=== PATIENT | male | born 1985 | race Caucasian/White ===

== ENCOUNTER 2017-07-02 11:49 | Emergency (ER) | payer OTHER ==
[~2017-07-02] VITALS: Ht 175.3 cm; Wt 77.1 kg
--- NOTE | 2017-07-02 12:42 | ED General ---
General Chief Complaint: Laceration Stated Complaint: FINGER LAC Nursing Triage Note: PT WAS WORKING AT [employer] AND CUT HIS RIGHT 2ND FINGER. Nursing Sepsis Screen: No Definite Risk Source of Information: Patient Exam Limitations: Language Barrier (language line used.) History of Present Illness Date Seen by Provider: Jul 02, 2017 Time Seen by Provider: 12:05 Initial Comments 31-year-old male patient presents to the emergency department via [facility] with complaints of cutting his right second finger with a hook while at work at [employer] Location Injury Occurred: work Timing/Duration: 1/2 Hour Severity: Mild Modifying Factors: worse with Other (pain worse with palpation) Allergies and Home Medications Allergies Coded Allergies: No Known Drug Allergies (Unverified , 07/02/17) Home Medications Cephalexin 500 Mg Capsule, 500 MG PO TID Prescribed by: MILLICENT LAZARO on 07/02/17 1323 Patient Home Medication List Home Medication List Reviewed: Yes Constitutional: no symptoms reported Musculoskeletal: see HPI, No joint pain, No joint swelling, other (Pain at the laceration site of the right second finger) Skin: see HPI, other (Laceration right second finger) Psychiatric/Neurological: Denies Numbness, Denies Paresthesia, Denies Tingling , Denies Weakness All Other Systems Reviewed Negative Unless Noted: Yes (Negative excepted noted.) Past Zncenuy-Vflsfc-Xpyrxg Hx Patient Social History Alcohol Use: Denies Use Recreational Drug Use: No Smoking Status: Unknown if Ever Smoked Recent Foreign Travel: No Contact w/Someone Who Travel: No Recent Infectious Disease Expo: No Immunizations Up To Date Tetanus Booster (TDap): Unknown Surgeries History of Surgeries: No Respiratory History of Respiratory Disorde: No Cardiovascular History of Cardiac Disorders: No Neurological History of Neurological Disord: No Genitourinary History of Genitourinary Disor: No Gastrointestinal History of Gastrointestinal Di: No Musculoskeletal History of Musculoskeletal Dis: No Endocrine History of Endocrine Disorders: No HEENT History of HEENT Disorders: No Cancer History of Cancer: No Psychosocial History of Psychiatric Problem: No Integumentary History of Skin or Integumenta: No Blood Transfusions History of Blood Disorders: No Reviewed Nursing Assessment Reviewed/Agree w Nursing PMH: Yes Family Medical History Significant Family History: No Pertinent Family Hx Physical Exam Vital Signs Vital Signs - First Documented 07/02/17 07/02/17 12:07 13:45 Temp 97.5 Pulse 70 Resp 16 B/P (MAP) 118/72 (87) Pulse Ox 98 O2 Delivery Room Air Capillary Refill : Less Than 3 Seconds General Appearance: No Apparent Distress, WD/WN Cardiovascular: Normal Peripheral Pulses Extremity: Normal Capillary Refill, Normal Range of Motion (Full extension noted of the right second finger), Other (1 cm laceration of the proximal right second posterior finger with mild soft tissue tenderness.) Neurologic/Psychiatric: Alert, Oriented x3, No Motor/Sensory Deficits, Normal Mood/Affect Skin: Normal Color, Warm/Dry, Other (1 cm laceration of the proximal right second posterior finger with mild soft tissue tenderness.) Laceration Repair : Wound Location: Other (rt 2nd finger) Wound Length (cm): 1 Wound's Depth, Shape: linear, sub Q Wound Explored: contaminated Irrigated w/ Saline (ccs): 100 Betadine Prep?: Yes (and scrubbed with chlorhexidine and sterile saline ) Anesthesia: 1% Lidocaine Volume Anesthetic (ccs): 2 Suture: Ethlion Suture Size: 4-0 Number of Sutures: 1 (horizontal mattress suture) Layer Closure?: 1 Sterile Dressing Applied?: Yes Progress blood loss minimal. patient tolerated the procedure well. Progress/Results/Core Measures Suspected Sepsis Recent Fever Within 48 Hours: No Infection Criteria Present: Suspected New Infection New/Unexplained Altered Menta: No Sepsis Screen: No Definite Risk Sepsis Diagnosis: SIRS Temperature:97.5 Pulse: 70 Respiratory Rate: 16 Blood Pressure 118 /72 Mean: 87 Results/Orders My Orders Orders - MILLICENT LAZARO PA Dipht,Pertuss(Acell),Tet Adult (Boostrix (07/02/17 12:43) Lidocaine 1% (Xylocaine 1%) (07/02/17 12:45) Finger(S) (07/02/17 13:14) Medications Given in ED Current Medications Medications Dose Ordered Sig/Alec Route Start Time Stop Time Status Last Admin Dose Admin Lidocaine HCl 50 ml ONCE ONCE IJ 07/02/17 12:45 07/02/17 12:46 DC 07/02/17 12:53 50 ML Vital Signs/I&O Vital Sign - Last 12Hours 07/02/17 07/02/17 07/02/17 07/02/17 12:07 12:53 12:55 13:45 Temp 97.5 97.5 97.5 97.5 Pulse 70 70 Resp 16 16 B/P (MAP) 118/72 (87) 118/70 (87) Pulse Ox 98 O2 Delivery Room Air Capillary Refill : Less Than 3 Seconds Blood Pressure Mean: 87 Diagnostic Imaging Diagonstic Imaging: Xray Plain Films/CT/US/NM/MRI: hand Comments FINDINGS: No fractures or dislocations with no radiopaque foreign bodies. Overlying gauze material does slightly limit evaluation of the soft tissues. IMPRESSION: 1. No acute abnormality appreciated. Dictated by: Dictated on workstation # [id number] Reviewed: Reviewed by Me (radiology report reviewed by me) Departure Impression Impression: Primary Impression: Laceration of finger of right hand Qualified Codes: S61.210A - Laceration without foreign body of right index finger without damage to nail, initial encounter Disposition: 01 HOME, SELF-CARE Condition: Improved Departure-Patient Inst. Decision time for Depature: 13:22 Referrals: NO,LOCAL PHYSICIAN (PCP/Family) Primary Care Physician Patient Instructions: Laceration Repair With Stitches (DC) Add. Discharge Instructions: All discharge instructions reviewed with patient and/or family. Voiced understanding. Medications as instructed. Tylenol extra strength over-the- counter as directed for pain. Ibuprofen 800 mg by mouth every 8 hours as needed for pain. Elevate the right hand on pillows. Ice pack as needed for pain. Tomorrow morning you may remove the bandage, shower with antibacterial soap and pat dry. Apply triple antibiotic ointment twice daily for 3 days and cover with a bandage. Return to the emergency department in 7 days for suture removal. Follow-up with occupational health. Return to the emergency department immediately for worsened pain, redness, fever, drainage, or any other concerns. Scripts Cephalexin (Cephalexin) 500 Mg Capsule 500 MG PO TID, #15 CAP 0 Refills Prov: MILLICENT LAZARO 07/02/17 MILLICENT LAZARO Jul 02, 2017 12:42
[2017-07-02] MEDS ORDERED: TETANUS,DIPTH,PERTUSS P/F (BOOSTRIX) 0.5 ML VIAL IM STA (12:43)
[2017-07-02] MEDS ORDERED: LIDOCAINE 1% INJ 50 ML (XYLOCAINE) VIAL IJ ONE (12:45)
[2017-07-02] MEDS ORDERED: CEPH500C PO (13:23)
[2017-07-02 13:45] VITALS: BP 118/70
--- NOTE | 2017-07-02 13:57 | Diagnostic Imaging Report ---
INDICATION: Second digit laceration. EXAMINATION: Three views of the second digit from 07/02/2017. FINDINGS: No fractures or dislocations with no radiopaque foreign bodies. Overlying gauze material does slightly limit evaluation of the soft tissues. IMPRESSION: 1. No acute abnormality appreciated. Dictated by: Dictated on workstation # [id number]
== END 2017-07-02 13:45 | disposition home or self-care (01) ==
LOC: ER 11:54
DX: S61.220A Laceration with foreign body of right index finger without damage to nail, initial encounter (principal); Z23 Encounter for immunization; W26.8XXA Contact with other sharp object(s), not elsewhere classified, initial encounter; Y92.59 Other trade areas as the place of occurrence of the external cause; Y99.0 Civilian activity done for income or pay
CPT/HCPCS: 12001; 73140; 90471; 90715